=== PATIENT | male | born 1995 | race Caucasian/White ===

== ENCOUNTER 2016-12-27 12:54 | Emergency (ER) | payer OTHER ==
--- NOTE | 2016-12-27 13:20 | EDPHY ---
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 He is complaining of perioral paresthesia, abdominal cramping, nausea. He did vomit once prior to arrival and is feeling improvement. He has prior history of similar reaction , received subcu epinephrine at prior emergency department, notes that this feels different and less severe. PRIMARY CARE PROVIDER: REVIEW OF SYSTEMS: A ten point review of systems was performed and is negative with the exception of the items mentioned in the HPI PAST MEDICAL & SURGICAL HISTORY: Known allergy to [place] nuts SOCIAL HISTORY:nonsmoker PHYSICAL EXAM (Prior to examination, patient consented to physical exam, hands were washed and my usual and customary physical exam procedures followed) 1) GENERAL: Well-developed, well-nourished, alert and oriented. Appears to be in no acute distress. 2) HEAD: Normocephalic, atraumatic 3) HEENT: Pupils equal, round, reactive to light bilaterally. Sclera anicteric. Nasopharynx, oropharynx, clear, no lesions. 4) NECK: Full range of motion, no meningeal signs. 5) LUNGS: Clear auscultation bilaterally, no wheezes, no rhonchi, no retractions. 6) HEART: Regular rate and rhythm, no murmur, no heave, no gallop. 7) ABDOMEN: No guarding, no rebound, no focal tenderness, negative McBurney's, negative Cornelius's, negative Rovsing's, negative peritoneal sign, unable to elicit any abdominal pain on exam 8) MUSCULOSKELETAL: Moving all extremities, no focal areas of tenderness, no obvious trauma. No peripheral edema or discoloration. 9) BACK: no visual or palpable abnormality. 10) SKIN: No rash, no petechiae. 11) Psychiatric: Patient is oriented X 3, there is no agitation. DIFFERENTIAL DIAGNOSIS: In no particular include but limited to allergic reaction, anaphylaxis, urticaria - Personal History Current Tetanus/Diphtheria Vaccine: Yes - Medical/Surgical History Hx Asthma: No Hx Chronic Respiratory Disease: No Hx Diabetes: No Hx Cardiac Disease: No Hx Renal Disease: No Hx Cirrhosis: No Hx Alcoholism: No Hx HIV/AIDS: No Hx Splenectomy or Spleen Trauma: No Other PMH: allergic reaction - Social History Smoking Status: Never smoked Constitutional: Initial Vital Signs Temperature (C) 36.6 C 12/27/16 12:59 Heart Rate 54 L 12/27/16 12:59 Respiratory Rate 17 12/27/16 12:59 Blood Pressure 130/68 H 12/27/16 12:59 O2 Sat (%) 98 12/27/16 12:59 O2 Delivery Mode Room Air Allergies/Adverse Reactions: No Known Allergies Allergy (Unverified 12/27/16 12:57) Home Medications: Medication Instructions Recorded EPINEPHRINE [EPIPEN] 0.3 mg IM ONCE #2 syr 12/27/16 Medical Decision Making ED Course/Re-evaluation: 1:20 p.m.: This patient currently appears comfortable. Will hold on epinephrine at this time will administer H1 H2 kiara, Solu-Medrol, IV fluid, re-evaluate. Care of patient under supervision of secondary supervising physician Dr Steele 2:30 p.m.: Re-evaluation, sleeping 3:28 p.m.: Re-evaluation, sleeping, easily woken, states that he is feeling improvement, asymptomatic. Re-examined the patient at this time, lungs are clear bilaterally, oropharynx clear no tonsillar glossal enlargement, abdomen is soft no guarding or rebound, no itching. I think the patient can be discharged. He has not received epinephrine the emergency department. I had a lengthy discussion with him and gave him my usual and customary allergic reaction precautions and instructions and a prescription for EpiPen. He feels comfortable being discharged. - Data Points Medications Given: Sodium Chloride (Ns) 1,000 mls @ 0 mls/hr IV CONT MICKEY PRN Reason: TKO Stop: 06/25/17 13:29 Last Admin: 12/27/16 13:30 Dose: 1,000 mls Discontinued Medications Diphenhydramine HCl (Benadryl Injection) 50 mg IVP EDNOW ONE Stop: 12/27/16 13:29 Last Admin: 12/27/16 13:30 Dose: 50 mg Methylprednisolone Sodium Succinate (Solu-Medrol) 125 mg IVP EDNOW ONE Stop: 12/27/16 13:29 Last Admin: 12/27/16 13:30 Dose: 125 mg Ranitidine HCl (Zantac) 50 mg IVP ONCE ONE Stop: 12/27/16 13:29 Last Admin: 12/27/16 13:30 Dose: 50 mg Departure - Departure Disposition: Home, Routine, Self-Care Clinical Impression: Allergic reaction Qualifiers: Encounter type: initial encounter Qualified Code(s): T78.40XA - Allergy, unspecified, initial encounter Condition: Good Instructions: Food Allergy (ED), Peanut Allergy (ED) Additional Instructions: If you developed allergic reaction like symptoms use your EpiPen immediately and call 911 Referrals: Ashley Chapa MD [[facility] [place] Primary Care Provider] - 5-7 days, call for appt. (Dr. Ashley Chapa is an epic specialist) Prescriptions: EPINEPHRINE [EPIPEN] 0.3 mg IM ONCE #2 syr
[2016-12-27] MEDS ORDERED: RANITIDINE 50 MG/2 ML VIAL IVP ONE (13:28)
[2016-12-27] MEDS ORDERED: methylPREDNISolone SOD SUCC 125 MG/2 ML VIAL IVP ONE (13:28)
[2016-12-27] MEDS ORDERED: NS 1,000 ML IV SCH (13:30)
[2016-12-27 14:30] VITALS: RESP 16
[2016-12-27 15:00] VITALS: BP 118/71; PULSE 65; TEMP 98.1; O2SAT 97
== END 2016-12-27 15:36 | disposition home or self-care (01) ==
DX: T78.1XXA Other adverse food reactions, not elsewhere classified, initial encounter (principal); R11.2 Nausea with vomiting, unspecified
CPT/HCPCS: 96374